=== PATIENT | female | born 1960 | race Caucasian/White ===

== ENCOUNTER 2017-07-07 07:17 | Emergency (ER) | payer BC ==
[2017-07-07 07:44] VITALS: BP 178/110
--- NOTE | 2017-07-07 09:11 | UC ---
Jamari Taylor Angela, scribed for Cox BransonMaikel MD on 07/07/17 at 0832 . General HPI - HPI Summary HPI Summary: In Room Note: This pt is 57 y/o female parenting to [facility] c/o sore throat x4, since Tuesday morning. Pt reports it is painful to swallow. She has been treated before for this with penicillin. Pt denies cough, throat tightening, SOB, fever, chills, abd pain. Her tonsils are still in. Her last strep throat was around 20 years ago. Pt works in [employer] with [employer]. She has been hospitalized for fibroids hemorrhaging. Pt reports being aware of her hypertension but declines a referral to establish a PCP. Note: PT's temperatue is 99.9, pulse 110, blood pressure is 178/110. 7/10 pain. Pt is a non-smoker. On no medications for blood pressure. Visit history noncontributory to present complaint. Nurse Pt states sore throat that started 07/03/17. Pt states intermittent right ear ache. Pt denies N/V and chills. - History of Current Complaint Chief Complaint: UCGeneralIllness Stated Complaint: SORE THROAT Time Seen by Provider: 07/07/17 07:20 Hx Obtained From: Patient Hx Last Menstrual Period: 09/12/13 Onset/Duration: Lasting Days Associated Signs & Symptoms: Negative: Abdominal Pain, Cough, Fever, Nausea, SOB , Vomiting - Allergy/Home Medications Allergies/Adverse Reactions: Allergies Allergy/AdvReac Type Severity Reaction Status Date / Time No Known Allergies Allergy Verified 07/07/17 07:44 Home Medications: Home Medications Calcium & Phosphorus W/ Vitami [Citracal+D3 250-107-500 mg-mg-Unit] 1 tab PO DAILY 07/07/17 [History Confirmed 07/07/17] Multiple Vitamins W/ Minerals [Preservision Areds 2 + Mu] 1 cap PO BID 07/07/17 [History Confirmed 07/07/17] PMH/Surg Hx/FS Hx/Imm Hx - Additional Past Medical History Additional PMH: PMHx: strep throat Previously Healthy: Yes Other Endocrine History: DENIES: diabetes Other Neurological History: DENIES: CVA - Surgical History Surgical History: Yes Surgery Procedure, Year, and Place: wisdom teeth - Family History Known Family History: Positive: Cardiac Disease - Father: Afib Negative: Hypertension, Diabetes - Social History Occupation: Employed Full-time Alcohol Use: Daily Alcohol Amount: 1 glass of wine Substance Use Type: None Smoking Status (MU): Never Smoked Tobacco - Immunization History Most Recent Influenza Vaccination: 2016 Most Recent Tetanus Shot: due Most Recent Pneumonia Vaccination: approx 2014 Review of Systems Constitutional: Negative Skin: Negative Eyes: Negative ENT: Sore Throat Respiratory: Negative Cardiovascular: Negative Gastrointestinal: Negative Genitourinary: Negative Motor: Negative Neurovascular: Negative Musculoskeletal: Negative Neurological: Negative All Other Systems Reviewed And Are Negative: Yes Physical Exam Triage Information Reviewed: Yes Vital Signs: Initial Vital Signs Temp 99.9 F 07/07/17 07:31 Pulse 110 07/07/17 07:31 Resp 18 07/07/17 07:31 BP 178/110 07/07/17 07:31 Pulse Ox 99 07/07/17 07:31 Vital Signs Reviewed: Yes - Additional Comments The patient is well-nourished in no acute distress and in no acute pain. The skin is warm and dry and skin color reflects adequate perfusion. HEENT: The head is normocephalic and atraumatic. The pupils are equal and reactive. The conjunctivae are clear and without drainage. Nares are patent and without drainage. The external ears are intact. The ear canals are patent and without drainage. The tympanic membranes are intact. PT IS ABLE TO OPEN MOUTH FULLY. THERE IS POSTERIOR ERYTHEMA ON BOTH SIDES, THE RIGHT SIDE SHOWS SWELLING SUPERIOR TO THE TONSIL, WHICH IS ALSO SWOLLEN, NOT TENDER TO TOUCH. IT APPEARS TO BE PHARYNGITIS RATHER THAN A PERITONSILLAR ABSCESS. NECK IS SUPPLE with full range of motion and non-tender. THERE IS NO ANTERIOR ADENOPATHY. Respiratory: Chest is non-tender. Lungs are clear to auscultation and breath sounds are symmetrical and equal. Cardiovascular: Hear is regular rate and rhythm. There is no murmur or rub auscultated. There is no peripheral edema and pulses are symmetrical and equal. Abdomen: The abdomen is soft and non-tender. There are normal bowel sounds heard in all four quadrants and there is no organomegaly palpated. Musculoskeletal: There is no back pain noted. Extremities are non-tender with full range of motion. There is good capillary refill. There is no peripheral edema or calf tenderness elicited. Neurological: Patient is alert and oriented to person, place and time. The patient has symmetrical motor strength in all four extremities. Psychiatric: The patient has an appropriate affect and does not exhibit any anxiety or depression. Course/Dx - Course Course Of Treatment: Medications have been included in the original chart and reviewed. Hypertensive BP reading (>=140/90); patient referred to PCP within 1 day-4 wks for follow-up. On exam, NECK IS SUPPLE. PT IS ABLE TO OPEN MOUTH FULLY. THERE IS POSTERIOR ERYTHEMA ON BOTH SIDES, THE RIGHT SIDE SHOWS SWELLING SUPERIOR TO THE TONSIL, WHICH IS ALSO SWOLLEN, NOT TENDER TO TOUCH. IT APPEARS TO BE PHARYNGITIS RATHER THAN A PERITONSILLAR ABSCESS. THERE IS NO ANTERIOR ADENOPATHY. Rapid strep test is negative for strep throat. MDM: I discussed the pts condition at length, she is aware of her hypertension but she does not like doctors and does not want treatment. She has a history of strep throat and will be treated for it. I discussed with her the danger of peritonsillar abscess , and I will be here in 2 days and she can call me if she needs to come in. She knows to go to the ED if she spikes a temperature or if her swallowing gets worse. It is worthy to note that she does not have a muffled voice or trouble swallowing. There is no clinical evidence of epiglottitis. - Differential Dx - Multi-Symptom Differential Diagnoses: Other - Pharyngitis vs tonsillitis vs peritonsillar abscess Provider Diagnoses: Pharyngitis/Tonsillitis/presumed strep throat Discharge - Discharge Plan Condition: Stable Disposition: HOME Prescriptions: Amoxicillin PO (*) [Amoxicillin 875 MG (*)] 875 mg PO BID #20 tab MDD 2 Patient Education Materials: Chronic Hypertension (ED), Tonsillitis (ED), Hypertensive Crisis (ED) Referrals: No Primary Care Phys,NOPCP [Primary Care Provider] - Additional Instructions: WE DISCUSSED: 1. based on your examination and history, i will treat you for strep throat. 2. it does not appear that you have an abscess, but you must go to ED for worsening pain, temperature, swelling, difficulty swallowing or breathing. 3. I will start you on Amoxicillin, twice a day. Also see below instructions. 4. Although you don't want to be evaluated or treated for high blood pressure, I have given you information about hypertension and what kinds of symptoms would be particularly concerning. 5. Call me in two days if you have any questions or concerns. 6. We can always refer you to a physician if you need further general medical treatment. The documentation as recorded by the Jamari rolon Angela accurately reflects the service I personally performed and the decisions made by me, Maikel Douglas MD.
== END 2017-07-07 08:55 | disposition home or self-care (01) ==
LOC: UCEAST 07:17
DX: J02.9 Acute pharyngitis, unspecified (principal)
CPT/HCPCS: 87070; 87651; 99212; G0463